=== PATIENT | male | born 1940 | race Caucasian/White ===

== ENCOUNTER → 2023-10-26 10:41 | Outpatient (REF) | payer OTHER, SELFPAY ==
[2023-10-26 11:55] LABS: Blood Urea Nitrogen 18 mg/dl (9-20); Calcium 9.2 mg/dl (8.4-10.2); Carbon Dioxide 26 mmol/L (22-30); Chloride 100 mmol/L (98-107); Glucose 87 mg/dl (70-99); Potassium 4.6 mmol/L (3.5-5.1); Sodium 135 mmol/L (135-145); eGFR > 60.00
== END ==
LOC: RAD 10:41
PROVIDERS: ATTENDING PHYSICIAN Nurse Practitioner Adult Health; FAMILY PHYSICIAN Internal Medicine
DX: R06.00 Dyspnea, unspecified (principal); R91.1 Solitary pulmonary nodule; R07.9 Chest pain, unspecified; Z01.811 Encounter for preprocedural respiratory examination
CPT/HCPCS: 36415; 71275; 80048; Q9967

== ENCOUNTER → 2023-11-20 08:19 | Outpatient (REF) | payer OTHER, SELFPAY | LOC: HWRCS 08:19 | PROVIDERS: ATTENDING PHYSICIAN Internal Medicine Cardiovascular Disease; FAMILY PHYSICIAN Internal Medicine | DX: I25.10 Atherosclerotic heart disease of native coronary artery without angina pectoris (principal); I34.0 Nonrheumatic mitral (valve) insufficiency; I35.1 Nonrheumatic aortic (valve) insufficiency | CPT/HCPCS: 93306 ==

== ENCOUNTER → 2023-11-23 10:59 | Outpatient (REF) | payer OTHER, SELFPAY | LOC: DHCBC/DCA 10:59 | PROVIDERS: ATTENDING PHYSICIAN Internal Medicine Cardiovascular Disease; FAMILY PHYSICIAN Internal Medicine | DX: R06.09 Other forms of dyspnea (principal); R07.89 Other chest pain | CPT/HCPCS: 78452; 93017; A9500; J2785 ==

== ENCOUNTER 2024-04-12 06:18 | Day surgery (SDC) | payer OTHER, SELFPAY | END 2024-04-12 16:08 | disposition home or self-care (01) | LOC: GI 06:18 | PROVIDERS: ATTENDING PHYSICIAN Specialist | DX: K29.70 Gastritis, unspecified, without bleeding (principal); K22.9 Disease of esophagus, unspecified; K25.9 Gastric ulcer, unspecified as acute or chronic, without hemorrhage or perforation; K21.00 Gastro-esophageal reflux disease with esophagitis, without bleeding; K31.89 Other diseases of stomach and duodenum; R07.89 Other chest pain | CPT/HCPCS: 43239; 88305; 88342 ==

== ENCOUNTER → 2024-11-25 10:17 | Outpatient (REF) | payer OTHER, SELFPAY | LOC: RAD 10:17 | PROVIDERS: ATTENDING PHYSICIAN Internal Medicine Cardiovascular Disease; FAMILY PHYSICIAN Nurse Practitioner Family; OTHER PHYSICIAN Specialist | DX: I50.32 Chronic diastolic (congestive) heart failure (principal); M54.2 Cervicalgia | CPT/HCPCS: 72050; 78803; A9538 ==

== ENCOUNTER → 2025-01-23 09:25 | Outpatient (REF) | payer OTHER, SELFPAY ==
--- NOTE | 2025-01-23 10:32 | CARDSERVLU ---
Echocardiogram with Lumason completed after protocol screening completed. Allergies verified.
Patent IV site: __Rt AC___
IV site flushed with 0.9% NaCl pre and post administration.
Diluted bolus method utilized to enhance visualization of ventricular mcgrath.
Total volume given: __2.5__ mL
Patient tolerated all procedures well without complications.
#22 claribel placed Rt AC. INT removed. dsg applied. Pressure held. No bleeding noted.
== END ==
LOC: RCS 09:25
PROVIDERS: ATTENDING PHYSICIAN Internal Medicine Cardiovascular Disease; FAMILY PHYSICIAN Nurse Practitioner Family
DX: I50.32 Chronic diastolic (congestive) heart failure (principal); E78.00 Pure hypercholesterolemia, unspecified; I10 Essential (primary) hypertension
CPT/HCPCS: 93306; Q9950